=== PATIENT | female | born 1955 | race Caucasian/White ===

== ENCOUNTER 2017-05-06 21:53 | Emergency (ER) | payer OTHER ==
[~2017-05-06] VITALS: Ht 157.5 cm; Wt 57.2 kg
[~2017-05-06 21:53] MED LIST: GLYB5TAB13 PO; LOSA25TA22 PO; METF850T PO; SIMV40TA5 PO
[2017-05-06 22:12] VITALS: BP 147/79
--- NOTE | 2017-05-06 22:18 | NUR ---
Pt presents to ED with CHURCH described as pressure and dizziness; she states feeling palpitations. Pt has Hx of HTN. Pt states she had chest pain on 04/07/17 but denies chestpain, N/V, at this time. Pt positioned in bed for comfort. A&O. ER MD aware. Continue to monitor.
--- NOTE | 2017-05-06 22:24 | NUR ---
PT TAKEN TO BED 2
--- NOTE | 2017-05-06 23:09 | NUR ---
Dr. Garcia evaluating patient.
[2017-05-06] MEDS ORDERED: IBUPROFEN 600 MG TAB PO ONE (23:35)
[2017-05-07 00:13] LABS: ACETONE, SERUM NEGATIVE (NEGATIVE); ANION GAP 16.4 (8-16); ASPARTATE AMINOTRANSFERASE 9 U/L (15-37); CARBON DIOXIDE 25.5 mmol/L (21-32); CHLORIDE 101 mmol/L (98-107); CREATININE 0.8 mg/dL (0.6-1.3); GFR ARICAN-AMERICAN 93 mL/min (>90); GLUCOSE 232 mg/dL (74-106); LIPASE 225 U/L (73-393); POTASSIUM 3.9 mmol/L (3.5-5.1); SODIUM SERUM 139 mmol/L (136-145); TOTAL BILIRUBIN 0.2 mg/dL (0.0-1.0); UREA NITROGEN, BLOOD 15 mg/dL (7-18)
[2017-05-07 00:17] VITALS: BP 142/71
[2017-05-07 00:20] LABS: HEMOGLOBIN 14.3 g/dL (12.0-16.0); MEAN CORPUSCULAR HEMOGLOBIN 31 pg (27-31); MEAN CORPUSCULAR HGB CONC 33 g/dL (33-37); MEAN CORPUSCULAR VOLUME 94 fL (80-94); PLATELET COUNT (AUTO) 322 K/uL (140-450); RED BLOOD CELL COUNT(AUTO) 4.59 MIL/uL (4.20-5.40); RED CELL DISTRIBUTION WIDTH 11.7 % (11.6-13.7); WHITE BLOOD COUNT (AUTO) 8.6 K/uL (4.8-10.8)
[2017-05-07 00:24] LABS: BASOPHILS % (MANUAL) 1 % (0-2); EOSINOPHILS % (MANUAL) 2 % (0-4); LYMPHOCYTES % (MANUAL) 33 % (20-46); MONOCYTES % (MANUAL) 10 % (5-12)
[2017-05-07 00:26] LABS: PROTHROMBIN TIME 9.7 secs (10.8-13.4)
[2017-05-07 02:10] LABS: APPEARANCE,URINE CLEAR (CLEAR); BILIRUBIN,URINE NEGATIVE (NEGATIVE); BLOOD, URINE NEGATIVE (NEGATIVE); COLOR,URINE YELLOW (YELLOW); LEUKOCYTE ESTERASE ,URINE TRACE (NEGATIVE); NITRITE, URINE NEGATIVE (NEGATIVE); UGLUCOSE 2+ (NEGATIVE)
[2017-05-07 02:35] LABS: RBC,URINE NONE SEEN /HPF (0-5); WBC,URINE 0-5 (RARE) /HPF (0-5)
== END 2017-05-07 00:17 | disposition home or self-care (01) ==
LOC: MED 21:53
DX: G44.209 Tension-type headache, unspecified, not intractable (principal); E11.9 Type 2 diabetes mellitus without complications; I10 Essential (primary) hypertension; E78.5 Hyperlipidemia, unspecified; Z79.84 Long term (current) use of oral hypoglycemic drugs; Z79.899 Other long term (current) drug therapy
CPT/HCPCS: 36415; 80053; 81001; 82009; 83690; 85025; 85610; 93005; 99285